=== PATIENT | male | born 1990 | race Caucasian/White ===

== ENCOUNTER 2018-01-07 10:15 | Emergency (ER) | payer SELFPAY ==
[2018-01-07 10:16] VITALS: BP 130/75; PULSE 69; RESP 17; TEMP 36.3; O2SAT 95; BMI 37.3
--- NOTE | 2018-01-07 10:23 | ED.VISSUMM ---
- ER Visit Summary Date of Service: 01/07/18 Chief Complaint: Dental pain History of Present Illness: The patient is a 27 M with ongoing dental pain for years. Over the last several days he has had increased pain in his left mandibular molars. He has multiple fractured teeth. No swelling. No trouble breathing, talking, or swallowing. No fever or systemic symptoms. He has not been able to find an affordable dentist. Physical Examination: Vital signs unremarkable. Skin appears normal. No swelling noted. Gums normal. Patient has multiple fractured teeth secondary to underlying decay. No sign of abscess. No meningeal signs. No lymphadenopathy. No tongue elevation. No trismus. Airway intact. No stridor. Test Results: None Emergency Department Course and Treatment: We will treat with Pen-Vee K and naproxen. Referred to dental for follow-up. Treatment Plan: As above Disposition: Discharged Impression: 1. Dental pain This note was generated with [employer] dictation software. It may contain incorrect words, spelling, and punctuation that were not noted in review of the chart prior to signing ED Disposition - Plan for ED Patient: Chief Complaint: Dental Referrals: NOT,DEFINED [Primary Care Provider] -
--- NOTE | 2018-01-07 10:25 | ED.DEP ---
ED Disposition - Plan for ED Patient: Chief Complaint: Dental Instructions: ED Tooth Pain Prescriptions: Naproxen [Naprosyn] 500 mg PO BID #20 tab Penicillin V Potassium 500 mg PO 4X/DAY #40 tab
[2018-01-07] MEDS: Penicillin Vk 250 MG Tablet 500 MG PO (10:34)
[2018-01-07] MEDS: Naproxen 500 MG Tablet PO (10:35)
== END 2018-01-07 10:38 | disposition home or self-care (01) ==
PROVIDERS: Emergency Provider Emergency Medicine
DX: K08.89 Other specified disorders of teeth and supporting structures (principal); K02.9 Dental caries, unspecified; S02.5XXA Fracture of tooth (traumatic), initial encounter for closed fracture; X58.XXXA Exposure to other specified factors, initial encounter; Y93.9 Activity, unspecified; Y92.9 Unspecified place or not applicable; Y99.9 Unspecified external cause status; F17.290 Nicotine dependence, other tobacco product, uncomplicated
CPT/HCPCS: 99282

== ENCOUNTER 2018-02-10 18:50 | Emergency (ER) | payer SELFPAY ==
[2018-02-10 18:51] VITALS: BP 124/70; PULSE 79; RESP 16; TEMP 36.7; O2SAT 96; BMI 40.2
--- NOTE | 2018-02-10 19:31 | ED.DCSUM_ITS ---
- ER Visit Summary Date of Service: 02/10/18 Chief Complaint: Dental pain History of Present Illness: The patient is a 27 M with no primary care physician or dentist. He reports he has pain in his left mandibular premolars and molars that began 2 days ago. Some aching, burning pain that is 10 at 10 worsening a 10 currently. Is worsened by eating. Is not taking anything for pain. Is sensitive to hot and cold temperatures. Physical Examination: Vitals: Stable. Afebrile. Mouth: No trismus. No edema of the floor of the mouth. Pain with percussion of left mandibular second premolar, first molar, and third molar. There are obvious caries here. He has widespread dental decay. There is no focal abscess. General: A&O x 3. NAD. Cardiovascular exam: Regular rate and rhythm, no murmur, rub or gallop. Respiratory exam: Clear to auscultation bilaterally. No wheezes or stridor. Abdominal exam: Soft, nontender, nondistended, normal bowel sounds. No peritoneal signs. Extremity: No clubbing, cyanosis, or edema. Emergency Department Course and Treatment: An [facility] report was obtained which was negative. He was treated penicillin, naproxen, [place]. Treatment Plan: Patient will be discharged in the above medications. Instructed follow-up the dentist soon as possible. Return to the emergency department for any worsening symptoms. Disposition: To home in improved and stable condition. Impression: 1. Dental pain. This note was generated with [employer] dictation software. It may contain incorrect words, spelling, and punctuation that were not noted in review of the chart prior to signing ED Disposition - Plan for ED Patient: Disposition: Home or Assisted Living Chief Complaint: Dental Instructions: ED Tooth Pain Prescriptions: Hydrocodone/Acetaminophen [[place] 5-325 Tablet] 1 - 2 each PO 4X/DAY PRN PRN 3 Days #12 tablet PRN Reason: Pain Naproxen [Naprosyn] 500 mg PO BID #20 tablet Penicillin V Potassium 500 mg PO 4X/DAY #40 tablet Referrals: Dentist,Your [STAFF PHYSICIAN] - As soon as possible
[2018-02-10] MEDS: Naproxen 250 MG Tablet 500 MG PO (19:45)
[2018-02-10] MEDS: HYDROcodone Bitartrate/Apap 5/325 Tablet PO (19:45)
[2018-02-10] MEDS: Penicillin Vk 250 MG Tablet 500 MG PO (19:45)
== END 2018-02-10 19:47 | disposition home or self-care (01) ==
PROVIDERS: Emergency Provider Emergency Medicine
DX: K08.89 Other specified disorders of teeth and supporting structures (principal); K02.9 Dental caries, unspecified
CPT/HCPCS: 99283